=== PATIENT | female | born 1950 | race Caucasian/White ===

== ENCOUNTER 2021-08-15 08:45 | Day surgery (SDC) | payer OTHER ==
[~2021-08-15] VITALS: Ht 162.6 cm; Wt 55.3 kg
[~2021-08-15 08:45] MED LIST: AMLO5 PO; ASPI81EC PO; CHOL10002 PO; CITA20 PO; CLON1 PO; CYAN1000 PO; FENO54 PO; FISH1000 PO; HYDR1TAB94 PO; OLME20 PO; Prinivil10 MG PO; ROSU10TA PO; SERT100 PO
--- NOTE | 2021-08-15 14:08 | NUR ---
PT RETURNED TO RECOVERY ROOM IN BED. LEFT FEMORAL GROIN SITE SOFT WITH NO HEMATOMA,NO BLEEDING AND INTACT DRESSING WITH LEFT PT 1+ PULSE. RIGHT FEMORAL GROIN SITE HAS FEMSTOP AT 64 MMHG NO HEMATOMA, NO BLEEDING WITH RIGHT DP PULSE 1+. CALL LIGHT IN REACH.
--- NOTE | 2021-08-15 14:28 | NUR ---
ASSUMED CARE OF PATIENT. FEMSTOP IN PLACE TO THE RIGHT GROIN. BOTH GROINS CDI. PATIENT RESTING QUIETLY. CALLED TO UPDATE HIM, LEFT MESSAGE. VVS. CALL LIGHT IN REACH. SIDE RAILS UP X 2
--- NOTE | 2021-08-15 14:47 | NUR ---
RELEASED THE FEMSTOP FROM THE RIGHT GROIN. BILATERAL GROINS SOFT, NO HEMATOMAS.
--- NOTE | 2021-08-15 15:49 | NUR ---
PATIENT SITTING UP IN THE BED AND LUNCH TRAY SERVED. VVS. OFF MONITOR. BILATERAL GROINS STABLE NO PAIN NOTED.
--- NOTE | 2021-08-15 17:58 | NUR ---
1615 AT THE BEDSIDE AND DR QUINN AT THE BEDSIDE. THE DOCTOR SPOKE TO THE PAIENT AND HER AT LENGTH AND ALL QUESTIONS ANSWERED. VVS.
--- NOTE | 2021-08-15 17:59 | NUR ---
1630 LEFT TO GO TO CAR AND WAS UP OFF THE MONITOR . PIV REMOVED AND GETTING DRESSED. PATIENT NOTICED A WARM WET FEELING AT THE RIGHT GROIN SITE. PAIENT ASSISTED BACK TO BED AND MANAUL PRESSURE QUICKLY APPLIED OT THE RIGHT GROIN SITE AND HELD FOR 15 MINUTES. FEMSTOP REAPPLIED TO THE GROIN SITE. DR. QUINN NOTIFIED OF REBLEED AND WILL COME TOT HE BEDSIDE TO REASSESS.
--- NOTE | 2021-08-15 18:04 | NUR ---
1800 PATIENT ROOM OBTAINED AND WILL TRANSFER PATIENT FOR OBS STAY. NOTIFIED OF TRANSFER.
--- NOTE | 2021-08-15 18:31 | NUR ---
ARRIVAL TO PCU FROM [facility]/SHIFT SUMMARY PATIENT ARRIVED TO PCU AT 1819. VSS. THIS RN OBSERVED RIGHT FEMORAL AND LEFT FEMORAL GROIN SITE. LEFT FORMAL GROIN SITE INTACT, NO HEMATOMA OR BLEEDING. RIGHT FEMORAL SITE HAS RESIDUAL OOZING BLOOD, TENDERNESS, AND BRUISIING. PATIENT APPEARS IN NO CARDIAC OR RESPIRATORY DISTRESS. STRONG RADIAL PULSES BILATERALLY, AND FAINT PEDIS PULSES BILATERALLY. PATIENT TO REMAIN FLAT AND KNOWNS NOT TO BEND RIGHT LEG. CALL LIGHT WITHIN REACH AND BED IN LOWEST POSITION. WILL CONTINUE TO MONITOR AND PROVIDE CARE UNTIL HAND OFF WITH NEXT SHIFT.
--- NOTE | 2021-08-16 05:38 | NUR ---
SHIFT SUMMARY NO ACUTE CHANGES THIS SHIFT. VSS. AXO. IN SR. ON RA. R GROIN SITE SEVERELY BRUISED BUT NO HEMATOMA NOTED. SOME HARDNESS NOTED BUT THIS WAS PRESENT ON BEGINNING OF SHIFT. PT STRUGGLED WITH LAYING FLAT BUT DID WELL ONE ABLE TO BEND LEGS. PT UP O BATHROOM THIS SHIFT WITH LITTLE ASSIST, WAS SLIGHTLY LIGHT HEADED WITH THIS BUT THIS HAS RESIDED. OTHERWISE, PT RESTING IN BED FOR MAJORITY OF SHIFT.
[2021-08-16] MEDS ORDERED: CLOP75 PO (10:38)
--- NOTE | 2021-08-16 13:36 | NUR ---
SHIFT NOTE: VSS ON RA. LEFT GROIN SITE LOOKS GOOD, NO HEMATOMA. RIGHT SITE STILL HAS SMALL AREA OF HARDENED SKIN, BUT MOST OF IT IS SOFT NONTENDER. RIGHT GROIN SITE IS IMPROVED FROM EARLIER THIS AM. PT D/C HOME WITH . D/C PAPERWORK GONE OVER WITH PT. PT IS A&O, PLEASANT WITH CARES.
== END 2021-08-16 14:07 | disposition home or self-care (01) ==
LOC: MHTC 08:45 → PCU 18:00 → MHTC 08-16 14:07
DX: I70.213 Atherosclerosis of native arteries of extremities with intermittent claudication, bilateral legs (principal); I10 Essential (primary) hypertension; I25.10 Atherosclerotic heart disease of native coronary artery without angina pectoris; J43.9 Emphysema, unspecified; K21.9 Gastro-esophageal reflux disease without esophagitis; Z87.891 Personal history of nicotine dependence; Z88.8 Allergy status to other drugs, medicaments and biological substances; Z88.6 Allergy status to analgesic agent; Z79.899 Other long term (current) drug therapy
CPT/HCPCS: 75625; 75716; 76937; 99152; 99153; A9270; C1725; C1760; C1769; C1874; C1887; C1894; C9765; J1644; J2250; J3010; J7030; Q9967

== ENCOUNTER 2022-04-11 06:46 | Day surgery (SDC) | payer OTHER ==
[~2022-04-11] VITALS: Ht 162.6 cm; Wt 49.2 kg
[~2022-04-11 06:46] MED LIST changes: +CARV6.25 PO; -CHOL10002 PO; +CLOP75 PO; +COQ1050 MG PO; -CYAN1000 PO; +Crestor20 MG PO; +FOLI1 PO; +NITR.4SL SL; +PANT40 PO; +Prednisone10 MG PO; +VITAMIN D3 PO; +Vitamin B-12 PO
--- NOTE | 2022-04-11 07:44 | NUR ---
Ambulatory in Day Surgery, History, Chart, Medications and Allergies reviewed before start of procedure. Patient States Post-Procedure ride home has been arranged. Patient confirms NPO status and agrees with scheduled surgery. Patient states colon prep results clear.
[2022-04-11] MEDS ORDERED: REPATHA SU140 MG/1 M INJ (07:50)
--- NOTE | 2022-04-11 08:00 | NUR ---
04/11/22 0800 Juanita Hagan History, Chart, Medications and Allergies reviewed before start of procedure.DR OH PROVIDING ANESTHESIA, SEE RECORD
--- NOTE | 2022-04-11 09:39 | NUR ---
Patient up to Ambulate independently. Gait steady. Discharge instructions reviewed with patient. Patient verbalizes understanding. Copy given to patient to take home. Lungs clear T/O to Auscultation. Discharged via wheelchair to private car for ride home.
== END 2022-04-11 23:08 | disposition home or self-care (01) ==
LOC: ORSCMMR 06:46 → ORD 08:00 → ORSCMMR 23:08
PROVIDERS: Internal Medicine Gastroenterology
PROC: 0DB78ZX Excision of Stomach, Pylorus, Via Natural or Artificial Opening Endoscopic, Diagnostic (ICD-10-PCS; principal; 2022-04-11 08:00)
PROC: 0DB98ZX Excision of Duodenum, Via Natural or Artificial Opening Endoscopic, Diagnostic (ICD-10-PCS; principal; 2022-04-11 08:00)
PROC: 0DBH8ZX Excision of Cecum, Via Natural or Artificial Opening Endoscopic, Diagnostic (ICD-10-PCS; principal; 2022-04-11 08:00)
PROC: 0DBL8ZX Excision of Transverse Colon, Via Natural or Artificial Opening Endoscopic, Diagnostic (ICD-10-PCS; principal; 2022-04-11 08:00)
DX: D50.9 Iron deficiency anemia, unspecified (principal); D12.3 Benign neoplasm of transverse colon; D12.0 Benign neoplasm of cecum; K29.70 Gastritis, unspecified, without bleeding; R10.13 Epigastric pain; R68.81 Early satiety; Z86.010 Personal history of colon polyps; Z87.891 Personal history of nicotine dependence; Z79.899 Other long term (current) drug therapy; Z79.02 Long term (current) use of antithrombotics/antiplatelets; I25.10 Atherosclerotic heart disease of native coronary artery without angina pectoris; J44.9 Chronic obstructive pulmonary disease, unspecified; F41.8 Other specified anxiety disorders; Z85.118 Personal history of other malignant neoplasm of bronchus and lung
CPT/HCPCS: 88305; 88342; J2001; J2370; J2704; J7120

== ENCOUNTER → 2022-12-14 | Day surgery (SDC) | payer OTHER ==
[2022-12-11 17:13] LABS: Hematocrit 30.2 % (33.0-51.0); Hemoglobin 9.2 g/dL (11.5-16.0)
[~2022-12-14] MED LIST changes: +REPATHA SU140 MG/1 M INJ
== END | disposition home or self-care (01) ==
LOC: LAB SHORT 12-11 15:27 → ATC 01:23 → EDSTATUS 13:30
DX: D50.0 Iron deficiency anemia secondary to blood loss (chronic) (principal)
CPT/HCPCS: 36415; 85014; 85018; 86900; 86901

== ENCOUNTER 2025-04-22 08:44 | Day surgery (SDC) | payer OTHER ==
[~2025-04-22] VITALS: Ht 162.6 cm; Wt 41.6 kg
[2025-04-22] MEDS ORDERED: CLOP75 (09:39)
[2025-04-22] MEDS ORDERED: ePHEDrine Sulfate 50 MG/ML 1ML Injection ONE ×2 (10:32→10:45)
[2025-04-22] MEDS ORDERED: Phenylephrine HCl 10mg/ml 1 ml Vial ONE (10:55)
[2025-04-22 11:50] VITALS: BP 110/60
== END 2025-04-22 11:30 | disposition home or self-care (01) ==
LOC: ORSCSDS 08:44
PROVIDERS: Specialist
PROC: 0DB98ZX Excision of Duodenum, Via Natural or Artificial Opening Endoscopic, Diagnostic (ICD-10-PCS; principal; 2025-04-22 10:15)
PROC: 0DB58ZX Excision of Esophagus, Via Natural or Artificial Opening Endoscopic, Diagnostic (ICD-10-PCS; principal; 2025-04-22 10:15)
PROC: 0DB78ZX Excision of Stomach, Pylorus, Via Natural or Artificial Opening Endoscopic, Diagnostic (ICD-10-PCS; principal; 2025-04-22 10:15)
PROC: 0DJD8ZZ Inspection of Lower Intestinal Tract, Via Natural or Artificial Opening Endoscopic (ICD-10-PCS; principal; 2025-04-22 10:15)
DX: R10.13 Epigastric pain (principal); R63.4 Abnormal weight loss; R68.81 Early satiety; I10 Essential (primary) hypertension; I25.10 Atherosclerotic heart disease of native coronary artery without angina pectoris; J44.9 Chronic obstructive pulmonary disease, unspecified; K21.9 Gastro-esophageal reflux disease without esophagitis; Z85.118 Personal history of other malignant neoplasm of bronchus and lung; Z87.891 Personal history of nicotine dependence; I73.9 Peripheral vascular disease, unspecified; Z79.899 Other long term (current) drug therapy; K44.9 Diaphragmatic hernia without obstruction or gangrene; Z86.0100 Personal history of colon polyps, unspecified
CPT/HCPCS: 88305; 88341; 88342; J2371; J2704; J7120

== ENCOUNTER 2025-06-17 12:47 | Emergency (ER) | payer OTHER ==
[~2025-06-17] VITALS: Ht 157.5 cm; Wt 49.9 kg
[~2025-06-17 12:47] MED LIST changes: +CLOP75
[2025-06-17 13:12] VITALS: BP 136/61
[2025-06-17] MEDS ORDERED: LIDO700A20 TOP (13:21)
[2025-06-17] MEDS ORDERED: ONDA4ODT MM (13:21)
== END 2025-06-17 13:23 | disposition home or self-care (01) ==
LOC: ER 12:47
DX: B02.9 Zoster without complications (principal); I10 Essential (primary) hypertension; Z59.89 Other problems related to housing and economic circumstances; Z88.8 Allergy status to other drugs, medicaments and biological substances; Z79.899 Other long term (current) drug therapy
CPT/HCPCS: 99282

== ENCOUNTER 2025-07-01 14:02 | Emergency (ER) | payer OTHER ==
[~2025-07-01] VITALS: Ht 162.6 cm; Wt 40.8 kg
[~2025-07-01 14:02] MED LIST changes: +LIDO700A20 TOP; +ONDA4ODT MM
[2025-07-01 15:29] LABS: BASOPHILS ABSOLUTE AUTO 0.03 K/mm3 (0.00-0.23); BASOPHILS PERCENT AUTO 0 % (0-2); EOSINOPHILS ABSOLUTE AUTO 0.02 K/mm3 (0.00-0.68); EOSINOPHILS PERCENT AUTO 0 % (0-6); Hematocrit 34.0 % (33.0-51.0); Hemoglobin 10.7 g/dL (11.5-16.0); IMMATURE GRAN ABSOLUTE AUTO 0.03 K/mm3 (0.00-0.10); IMMATURE GRAN PERCENT AUTO 0 % (0-1); LYMPHOCYTES ABSOLUTE AUTO 0.95 K/mm3 (0.84-5.20); LYMPHOCYTES PERCENT AUTO 9 % (21-46); MONOCYTES ABSOLUTE AUTO 0.56 K/mm3 (0.16-1.47); MONOCYTES PERCENT AUTO 5 % (4-13); Mean Corpuscular HGB Conc 31.5 g/dL (31.5-36.5); Mean Corpuscular Volume 87 fL (80-100); NEUTROPHILS ABSOLUTE AUTO 8.99 K/mm3 (1.96-9.15); NEUTROPHILS PERCENT AUTO 85 % (41-73); NRBC ABSOLUTE 0.00 K/mm3 (0.00-0.02); NRBC Auto 0.0 /100 WBC (0.0-0.2); Platelet Count 302 K/mm3 (150-400); RDW Coefficient Variation 17.2 % (11.7-14.2); RDW Standard Deviation 54.5 fL (35.1-46.3)
[2025-07-01 15:54] LABS: Alanine Aminotransfer (ALT/SGP 22.0 U/L (12-78); Albumin, Blood 2.5 g/dL (3.4-5.0); Albumin/Globulin Ratio 0.5 (0.8-1.8); Anion Gap 8.0 mmol/L (3-11); Aspartate Aminotrans (AST/SGOT 17.0 U/L (12-37); Bilirubin, Total 0.4 mg/dL (0.1-1.0); Blood Urea Nitrogen 15.0 mg/dL (8-24); CO2, Blood 25.0 mmol/L (21-32); Calcium, Blood 9.1 mg/dL (8.5-10.1); Chloride, Blood 106.0 mmol/L (98-108); Creatinine, Blood 0.6 mg/dL (0.40-1.00); Globulin, Blood 5.2 g/dL (2.2-4.0); Glucose, Blood 100.0 mg/dL (70-99); Potassium, Blood 3.4 mmol/L (3.5-5.5); Sodium, Blood 136.0 mmol/L (136-145); Total Protein, Blood 7.7 g/dL (6.4-8.2)
[2025-07-01] MEDS ORDERED: Ondansetron HCl 2 MG / ML 2ML Vial IV ONE ×2 (15:55→18:35)
[2025-07-01] MEDS ORDERED: NS 1,000 ML IV SCH (15:55)
[2025-07-01] MEDS ORDERED: Potassium Chloride 10 Meq Tablet SA PO ONE (16:05)
[2025-07-01] MEDS ORDERED: RX Prepack 2 Tabs Ondansetron ODT 4MG UD ONE (18:35)
[2025-07-01] MEDS ORDERED: ONDA4ODT MM (18:37)
[2025-07-01 18:52] VITALS: BP 118/88
== END 2025-07-01 19:13 | disposition home or self-care (01) ==
LOC: ER 14:02
PROVIDERS: Physician Assistant
DX: E86.0 Dehydration (principal); E87.6 Hypokalemia; I10 Essential (primary) hypertension; Z79.899 Other long term (current) drug therapy; Z79.02 Long term (current) use of antithrombotics/antiplatelets; Z88.6 Allergy status to analgesic agent; Z91.040 Latex allergy status; Z88.8 Allergy status to other drugs, medicaments and biological substances
CPT/HCPCS: 80053; 85025; 96361; 96374; 96376; 99283-25; A9270; J2405; J7030